=== PATIENT | female | born 1955 | race Caucasian/White ===

== ENCOUNTER 2019-01-28 18:08 | Observation (INO) | payer MEDICARE ==
[~2019-01-28] VITALS: Ht 167.6 cm; Wt 90.9 kg
[2019-01-28 18:34] LABS: BASOPHILS # (AUTO) 0.1 X10'3 (0-0.2); BASOPHILS % (AUTO) 1.1 % (0-1); EOSINOPHILS # (AUTO) 0.2 X10'3 (0-0.9); EOSINOPHILS % (AUTO) 3.1 % (0-6); HEMATOCRIT 39.7 % (35.0-45.0); HEMOGLOBIN 13.2 g/dl (12.0-16.0); LYMPHOCYTES # (AUTO) 3.2 X10'3 (1.1-4.8); LYMPHOCYTES % (AUTO) 46.4 % (21-51); MEAN CORPUSCULAR HEMOGLOBIN 30.9 PG (27.0-31.0); MEAN CORPUSCULAR HGB CONC 33.1 g/dL (33.0-36.5); MEAN CORPUSCULAR VOLUME 93.2 FL (78-98); MEAN PLATELET VOLUME 7.9 FL (7.4-10.4); MONOCYTES # (AUTO) 0.5 X10'3 (0-0.9); MONOCYTES % (AUTO) 7.1 % (2-12); NEUTROPHILS # (AUTO) 2.9 X10'3 (1.8-7.7); NEUTROPHILS % (AUTO) 42.3 % (42-75); PLATELET COUNT 231 X10'3 (140-440); RED BLOOD COUNT 4.26 X10'6 (4.20-5.60); RED CELL DISTRIBUTION WIDTH 13.7 % (11.5-14.5); WHITE BLOOD COUNT 6.9 X10'3 (4.5-11.0)
[2019-01-28 18:42] LABS: PARTIAL THROMBOPLASTIN TIME 30 SECONDS (22-32)
[2019-01-28 18:49] LABS: ALANINE AMINOTRANSFERASE 41 U/L (12-78); ALBUMIN 3.5 G/DL (3.4-5.0); ALBUMIN/GLOBULIN RATIO 1.2 (1.1-1.5); ALKALINE PHOSPHATASE 60 IU/L (46-116); ANION GAP 8 (8-16); ASPARTATE AMINO TRANSFERASE 24 U/L (10-37); BILIRUBIN,TOTAL 0.4 MG/DL (0.1-1.0); BLOOD UREA NITROGEN 12 MG/DL (7-18); BUN/CREATININE RATIO 12.9 (6.6-38.0); CALCIUM 8.8 MG/DL (8.5-10.1); CHLORIDE 110 MMOL/L (99-107); CREATININE 0.93 MG/DL (0.40-0.90); GLUCOSE 83 MG/DL (70-104); SODIUM 146 MMOL/L (135-145); TOTAL CARBON DIOXIDE 28.3 MMOL/L (24-32); TOTAL PROTEIN 6.4 G/DL (6.4-8.2); eGFR 61 ML/MIN
--- NOTE | 2019-01-28 19:16 | NUR ---
ATTEMPTED TO COMPLETE MED REC, PT UNABLE TO REMEMBER MEDICATIONS. TRANSFER PAPERWORK FROM [place] DID NOT HAVE LIST. PT STATES SHOULD BE BRINGING LIST WHEN HE GETS HERE "ANY TIME NOW."
[2019-01-28] MEDS ORDERED: FURO-149 PO (20:25)
[2019-01-28] MEDS ORDERED: GABA800T PO (20:25)
[2019-01-28] MEDS ORDERED: METF500T PO (20:25)
[2019-01-28] MEDS ORDERED: ALEN70TA3 PO (20:25)
[2019-01-28] MEDS ORDERED: POTA20TA19 PO (20:25)
[2019-01-28] MEDS ORDERED: GLIM1TAB3 PO (20:25)
[2019-01-28] MEDS ORDERED: BUSP5TAB3 PO (20:25)
[2019-01-28] MEDS ORDERED: DULO-31 PO (20:25)
[2019-01-28] MEDS ORDERED: CLOP75TA15 PO (20:25)
[2019-01-28] MEDS ORDERED: LOSA50TA64 PO (20:25)
[2019-01-28] MEDS ORDERED: CARV-50 PO (20:25)
[2019-01-28] MEDS ORDERED: TRAZ-251 PO (20:26)
[2019-01-28] MEDS ORDERED: MESSAGE TO PHARMACY PO ONE (20:45)
[2019-01-28] MEDS ORDERED: dextrose 50%-water 50ml dispensing syringe IV PRN ×2 (20:45)
[2019-01-28] MEDS ORDERED: insulin Lispro (HumaLOG) vial - multi-dose SQ SCH (20:45)
[2019-01-28] MEDS ORDERED: potassium CL 10mEq/100ml bag 100 ML IV PRN ×2 (20:45)
[2019-01-28] MEDS ORDERED: potassium Cl 20 mEq SR tablet PO PRN ×2 (20:45)
[2019-01-28] MEDS ORDERED: magnesium Cl slow-release 64mg tablet PO PRN (20:45)
[2019-01-28] MEDS ORDERED: morphine 2 MG/ML inj. syringe IV PRN (20:45)
[2019-01-28] MEDS ORDERED: dextrose ORAL solution 15 GM/59 ML bottle PO PRN ×2 (20:45)
[2019-01-28] MEDS ORDERED: glucagon, human recombinant 1mg kit SUBCUT PRN (20:45)
[2019-01-28] MEDS ORDERED: magnesium 2GM in 50ml NS 50 ML IV PRN (20:45)
[2019-01-28] MEDS ORDERED: ondansetron/PF 4mg/2ml inj IV PRN (20:45)
[2019-01-28] MEDS ORDERED: magnesium 4gm in 100ml NS 100 ML IV PRN (20:45)
[2019-01-28] MEDS ORDERED: aminophylline 250mg/10ml inj. IV PRN (20:55)
[2019-01-28] MEDS ORDERED: regadenoson 0.4mg/5ml syringe IV ONE (20:55)
[2019-01-28] MEDS ORDERED: nitroGLYCERIN 0.4mg SUBLingual tab SL PRN (20:55)
[2019-01-28] MEDS ORDERED: metoprolol tartrate 1mg/ml inj IV PRN (20:55)
[2019-01-28] MEDS: insulin glargine (Lantus) pen - multi-dose SQ SCH (20:57)
[2019-01-28] MEDS ORDERED: regadenoson 0.4mg/5ml syringe IV PRN (20:58)
[2019-01-28 21:06] LABS: HEMOGLOBIN A1C 5.6 % (4.5-6.2)
--- NOTE | 2019-01-28 21:15 | NUR ---
Patient in room . I have received report from ERMELINDA Marley and had the opportunity to ask questions and assume patient care.
[2019-01-28 21:40] VITALS: BP 119/72
[2019-01-29] VITALS (14 sets, daily range): BP systolic 99–151; BP diastolic 59–83
[2019-01-29] MEDS: traZODone 50mg tablet PO SCH ×2 (00:01→22:04)
[2019-01-29] MEDS: carVEDilol 12.5mg tablet PO SCH ×3 (00:01→22:04)
[2019-01-29] MEDS: gabapentin 400mg capsule PO SCH ×3 (00:02→22:05)
[2019-01-29 06:22] LABS: BASOPHILS # (AUTO) 0.1 X10'3 (0-0.2); BASOPHILS % (AUTO) 1.4 % (0-1); EOSINOPHILS # (AUTO) 0.2 X10'3 (0-0.9); HEMATOCRIT 36.1 % (35.0-45.0); HEMOGLOBIN 12.1 g/dl (12.0-16.0); LYMPHOCYTES # (AUTO) 2.1 X10'3 (1.1-4.8); LYMPHOCYTES % (AUTO) 50.9 % (21-51); MEAN CORPUSCULAR HEMOGLOBIN 31.2 PG (27.0-31.0); MEAN CORPUSCULAR HGB CONC 33.7 g/dL (33.0-36.5); MEAN CORPUSCULAR VOLUME 92.5 FL (78-98); MEAN PLATELET VOLUME 7.8 FL (7.4-10.4); MONOCYTES # (AUTO) 0.3 X10'3 (0-0.9); MONOCYTES % (AUTO) 7.6 % (2-12); NEUTROPHILS # (AUTO) 1.5 X10'3 (1.8-7.7); NEUTROPHILS % (AUTO) 36.1 % (42-75); PLATELET COUNT 197 X10'3 (140-440); RED CELL DISTRIBUTION WIDTH 13.4 % (11.5-14.5)
--- NOTE | 2019-01-29 06:23 | NUR ---
Problems reprioritized. Patient report given, questions answered & plan of care reviewed with ERMELINDA Cardozo.
--- NOTE | 2019-01-29 06:25 | NUR ---
Patient in room [facility]. I have received report from ERMELINDA Spence and had the opportunity to ask questions and assume patient care.
[2019-01-29 06:34] LABS: ALBUMIN 2.9 G/DL (3.4-5.0); ANION GAP 9 (8-16); BLOOD UREA NITROGEN 13 MG/DL (7-18); BUN/CREATININE RATIO 13.7 (6.6-38.0); CALCIUM 8.9 MG/DL (8.5-10.1); CHLORIDE 110 MMOL/L (99-107); CREATININE 0.95 MG/DL (0.40-0.90); GLUCOSE 105 MG/DL (70-104); MAGNESIUM 1.8 MG/DL (1.5-2.4); POTASSIUM 3.9 MMOL/L (3.5-5.1); SODIUM 145 MMOL/L (135-145); eGFR 59 ML/MIN
[2019-01-29 07:50] LABS: TOTAL CELLS COUNTED 100
[2019-01-29 07:51] LABS: PLATELET ESTIMATE NORMAL
[2019-01-29] MEDS: K and/or MAG REPLACEMENT MC SCH (08:00)
[2019-01-29 08:20] LABS: LIPASE 157 U/L (73-393)
[2019-01-29] MEDS: ESOMEPRAZOLE 40 MG VIAL IV SCH ×2 (08:44→22:05)
--- NOTE | 2019-01-29 12:29 | NUR ---
DM Consult: Pt A1C <7 and not appropriate for DM ed at this time. Addendum: 01/29/19 at [address] Amended: Links added.
--- NOTE | 2019-01-29 18:30 | NUR ---
Patient in room [facility]. I have received report from Juliane Jack and had the opportunity to ask questions and assume patient care.
--- NOTE | 2019-01-29 18:35 | NUR ---
Problems reprioritized. Patient report given, questions answered & plan of care reviewed with ERMELINDA Yates.
[2019-01-29] MEDS ORDERED: acetaminophen 325mg tablet PO PRN (18:40)
[2019-01-29] MEDS: insulin glargine (Lantus) pen - multi-dose SQ SCH (21:00)
[2019-01-29] MEDS: losartan 25mg tablet PO SCH ×2 (22:05)
[2019-01-30] VITALS: BP 107/80
[2019-01-30 05:56] LABS: ALBUMIN 3.1 G/DL (3.4-5.0); ANION GAP 7 (8-16); BLOOD UREA NITROGEN 13 MG/DL (7-18); BUN/CREATININE RATIO 12.3 (6.6-38.0); CALCIUM 8.8 MG/DL (8.5-10.1); CHLORIDE 110 MMOL/L (99-107); CREATININE 1.06 MG/DL (0.40-0.90); GLUCOSE 145 MG/DL (70-104); MAGNESIUM 1.9 MG/DL (1.5-2.4); POTASSIUM 3.9 MMOL/L (3.5-5.1); SODIUM 146 MMOL/L (135-145); TOTAL CARBON DIOXIDE 28.8 MMOL/L (24-32); eGFR 52 ML/MIN
[2019-01-30 06:05] LABS: BASOPHILS # (AUTO) 0.1 X10'3 (0-0.2); BASOPHILS % (AUTO) 1.2 % (0-1); EOSINOPHILS # (AUTO) 0.2 X10'3 (0-0.9); EOSINOPHILS % (AUTO) 4.5 % (0-6); HEMATOCRIT 37.4 % (35.0-45.0); HEMOGLOBIN 12.7 g/dl (12.0-16.0); LYMPHOCYTES # (AUTO) 2.3 X10'3 (1.1-4.8); LYMPHOCYTES % (AUTO) 52.7 % (21-51); MEAN CORPUSCULAR HEMOGLOBIN 31.8 PG (27.0-31.0); MEAN CORPUSCULAR HGB CONC 34.1 g/dL (33.0-36.5); MEAN CORPUSCULAR VOLUME 93.4 FL (78-98); MEAN PLATELET VOLUME 7.9 FL (7.4-10.4); MONOCYTES # (AUTO) 0.4 X10'3 (0-0.9); MONOCYTES % (AUTO) 9.8 % (2-12); NEUTROPHILS # (AUTO) 1.4 X10'3 (1.8-7.7); NEUTROPHILS % (AUTO) 31.8 % (42-75); PLATELET COUNT 199 X10'3 (140-440); RED BLOOD COUNT 4.01 X10'6 (4.20-5.60); RED CELL DISTRIBUTION WIDTH 13.5 % (11.5-14.5); WHITE BLOOD COUNT 4.3 X10'3 (4.5-11.0)
[2019-01-30 07:00] VITALS: BP 112/57
--- NOTE | 2019-01-30 07:00 | NUR ---
PT DID NOT WANT HER BS CHECKED
--- NOTE | 2019-01-30 07:21 | NUR ---
Problems reprioritized. Patient report given, questions answered & plan of care reviewed with Bess WADSWORTH.
[2019-01-30 07:28] LABS: PLATELET ESTIMATE NORMAL; TOTAL CELLS COUNTED 100
[2019-01-30] MEDS: K and/or MAG REPLACEMENT MC SCH (08:00)
[2019-01-30] MEDS ORDERED: FURO-149 PO (10:26)
[2019-01-30] MEDS: ESOMEPRAZOLE 40 MG VIAL IV SCH (10:32)
[2019-01-30] MEDS: carVEDilol 12.5mg tablet PO SCH (10:32)
[2019-01-30] MEDS: gabapentin 400mg capsule PO SCH (10:32)
== END 2019-01-30 12:45 | disposition home or self-care (01) ==
LOC: ER 18:08 → SUR 3N 21:45 → CMPBEDREQ 21:49
PROVIDERS: ADMIT Internal Medicine; ATTEND Internal Medicine
DX: R07.89 Other chest pain (principal); D68.62 Lupus anticoagulant syndrome; I11.0 Hypertensive heart disease with heart failure; Z86.711 Personal history of pulmonary embolism; Z90.710 Acquired absence of both cervix and uterus; I50.23 Acute on chronic systolic (congestive) heart failure; F32.9 Major depressive disorder, single episode, unspecified; I25.10 Atherosclerotic heart disease of native coronary artery without angina pectoris; I25.2 Old myocardial infarction; E11.40 Type 2 diabetes mellitus with diabetic neuropathy, unspecified; Z79.84 Long term (current) use of oral hypoglycemic drugs
CPT/HCPCS: 36415; 71045; 76700; 78452; 80048; 80053; 82948; 83036; 83690; 83735; 84484; 85025; 85610; 85730; 87081; 93005; 93017; 93306; 96374; 96375; 96376; 99284; A9500; G0378; J0280; J1815; J2405; J2785